=== PATIENT | male | born 1950 | race African-American/Black ===

== ENCOUNTER 2018-12-21 14:52 | Inpatient (IN) ==
[2018-12-21] MEDS ORDERED: ALBUTEROL/IPRATROPIUM 3 ML NEB RESP TX STA (16:58)
[2018-12-21 17:41] LABS: Eosinophils # 0.1 10*3/uL (0.0-0.87); Eosinophils % 2.6 % (0.00-10.9); Hematocrit 21.5 VOL% (42.0-52.0); Immature Granulocytes % 0.8 %; Immature Granulocytes Absolute 0.03 #; Lymphocytes # 0.2 10*3/uL (1.4-4.0); Lymphocytes % 6.2 % (21.2-54.2); Mean Corpuscular HGB Conc 32.6 GM/DL (32-36); Mean Platelet Volume 10.8 FL (9.6-12.0); Monocytes % 1.5 % (1.7-12.7); Neutrophils % 88.9 % (38.7-73.9); Platelet Count 219 T/CUMM (130-400); Red Blood Count 1.92 MC/CUMM (3.8-5.5); Red Cell Distribution Width 17.6 % (9.3-17.3); White Blood Count 3.9 T/CUMM (4-12)
[2018-12-21 18:07] LABS: Albumin 3.6 G/DL (3.4-5.0); Bilirubin,Total 0.6 MG/DL (0.2-1.0); Calcium 8.2 MG/DL (8.5-10.1); Osmolality,Calculated 298.1 MOS/KG (273-304); Total Protein 7.2 G/DL (6.4-8.3)
[2018-12-21] MEDS ORDERED: AZITHROMYCIN INJ 500 MG in SODIUM CHLORIDE 0.9% 250 ML IV STA (18:21)
[2018-12-21] MEDS ORDERED: ALBUTEROL NEB SOLN 5 MG/ML 20 ML/BOTTLE CONT NEB STA (18:21)
[2018-12-21] MEDS ORDERED: methylPREDNISolone SOD SUC 125 MG/2 ML VIAL IV STA (18:21)
[2018-12-21] MEDS ORDERED: GLUCAGON 1 MG VIAL IM PRN ×2 (19:22→19:25)
[2018-12-21] MEDS ORDERED: DEXTROSE 50% 25 GM/50 ML VIAL IV PRN ×2 (19:22→19:25)
[2018-12-21 19:38] LABS: Band Neutrophils 4 % (0-10); Eosinophils 6 % (0-10); Lymphocytes 9 % (20-55); Segmented Neutrophils 79 % (50-85)
[2018-12-21 19:39] LABS: Anisocytosis 2+; Polychromasia Slight
[2018-12-21 19:40] LABS: Hypochromasia 1+; Platelet Estimate Normal; Total Cells Counted 100
[2018-12-21] MEDS ORDERED: ALBUTEROL/IPRATROPIUM 3 ML NEB RESP TX PRN (20:01)
[2018-12-21] MEDS ORDERED: MONTELUKAST 10 MG TABLET PO PRN (20:01)
[2018-12-21] MEDS ORDERED: SODIUM CHLORIDE 0.9% 1,000 ML IV PRN (20:12)
[2018-12-21 22:50] LABS: Basophils % 0.1 % (0.0-0.8); Eosinophils % 0.4 % (0.00-10.9); Hematocrit 20.7 VOL% (42.0-52.0); Hemoglobin 6.6 GM/DL (14.0-18.0); Immature Granulocytes Absolute 0.09 #; Lymphocytes # 0.3 10*3/uL (1.4-4.0); Lymphocytes % 3.3 % (21.2-54.2); Mean Corpuscular HGB Conc 31.9 GM/DL (32-36); Mean Corpuscular Volume 115.6 FL (87-102); Mean Platelet Volume 11.6 FL (9.6-12.0); Monocytes % 1.2 % (1.7-12.7); Platelet Count 242 T/CUMM (130-400); Red Blood Count 1.79 MC/CUMM (3.8-5.5); Red Cell Distribution Width 18.4 % (9.3-17.3); White Blood Count 8.9 T/CUMM (4-12)
[2018-12-21 23:20] LABS: Folate 11.3 NG/ML (5.4-24.0); Vitamin B12 136 PG/ML (211-911)
[2018-12-21 23:22] LABS: Acanthocytes 1+; Anisocytosis 1+; Band Neutrophils 2 % (0-10); Lymphocytes 3 % (20-55); Ovalocytes Few; Platelet Estimate Adequate; Segmented Neutrophils 95 % (50-85); Total Cells Counted 100
[2018-12-21] MEDS: ALBUTEROL/IPRATROPIUM 3 ML NEB RESP TX SCH (23:53)
[2018-12-22] MEDS: cefTRIAXone 1,000 MG in SYRINGE 1 EACH IV SCH ×2 (00:14→21:39)
[2018-12-22] MEDS: INSULIN LISPRO 100 UNIT/ML SUBCUT SCH ×5 (00:20→21:38)
[2018-12-22] MEDS: methylPREDNISolone SOD SUC 40 MG/1 ML VIAL IV SCH ×2 (02:38→10:29)
[2018-12-22] MEDS: ALBUTEROL/IPRATROPIUM 3 ML NEB RESP TX SCH ×6 (03:31→23:39)
[2018-12-22 06:55] LABS: Albumin 3.2 G/DL (3.4-5.0); Bilirubin,Total 0.4 MG/DL (0.2-1.0); Calcium 8.4 MG/DL (8.5-10.1); Osmolality,Calculated 307.7 MOS/KG (273-304); Thyroid Stimulating Hormone 0.625 uIU/ml (0.358-3.74); Total Protein 7.3 G/DL (6.4-8.3)
[2018-12-22 07:58] LABS: Sedimentation Rate-Westergren 123 MM/HR (0-20)
[2018-12-22] MEDS: TAMSULOSIN 0.4 MG CAPSULE PO SCH ×2 (08:35→16:52)
[2018-12-22 09:31] LABS: Hemoglobin A1 (Alkaline) 96.8 % (96.5-98.5); Hemoglobin A2 (Alkaline) 3.2 % (1.5-3.5)
[2018-12-22 10:17] LABS: Hematocrit 26.4 VOL% (42.0-52.0); Immature Granulocytes % 0.9 %; Immature Granulocytes Absolute 0.09 #; Lymphocytes # 0.5 10*3/uL (1.4-4.0); Mean Corpuscular HGB Conc 32.6 GM/DL (32-36); Mean Corpuscular Volume 104.3 FL (87-102); Mean Platelet Volume 11.3 FL (9.6-12.0); Monocytes % 1.6 % (1.7-12.7); Neutrophils % 92.5 % (38.7-73.9); Platelet Count 212 T/CUMM (130-400); Red Blood Count 2.53 MC/CUMM (3.8-5.5); Red Cell Distribution Width 22.3 % (9.3-17.3); White Blood Count 10.2 T/CUMM (4-12)
[2018-12-22 10:18] LABS: Hemoglobin 8.6 GM/DL (14.0-18.0)
[2018-12-22 10:34] LABS: Lymphocytes 6 % (20-55); Segmented Neutrophils 93 % (50-85); Total Cells Counted 100
[2018-12-22 10:35] LABS: Microcytosis 1+
[2018-12-22 10:36] LABS: Anisocytosis 1+; Hypochromasia Slight
[2018-12-22 10:37] LABS: Ovalocytes Slight; Platelet Estimate Normal
[2018-12-22] MEDS: SODIUM CHLORIDE 0.45% 1,000 ML IV SCH (12:15)
[2018-12-22] MEDS: INSULIN GLARGINE 100 UNIT/ML SUBCUT SCH (12:15)
[2018-12-22] MEDS: DEXTROSE 5% NACL 0.45% 1,000 ML IV SCH (12:53)
[2018-12-22] MEDS: AZITHROMYCIN INJ 250 MG in SODIUM CHLORIDE 0.9% 250 ML IV SCH (18:00)
[2018-12-22] MEDS ORDERED: methylPREDNISolone SOD SUC 40 MG/1 ML VIAL IV SCH (21:00)
[2018-12-23] MEDS: SODIUM CHLORIDE 0.45% 1,000 ML IV SCH ×4 (00:50→22:00)
[2018-12-23] MEDS: ALBUTEROL/IPRATROPIUM 3 ML NEB RESP TX SCH ×6 (02:44→23:46)
[2018-12-23 06:00] LABS: Basophils % 0.3 % (0.0-0.8); Eosinophils % 0.3 % (0.00-10.9); Hematocrit 24.8 VOL% (42.0-52.0); Hemoglobin 8.1 GM/DL (14.0-18.0); Immature Granulocytes Absolute 0.11 #; Lymphocytes # 1.6 10*3/uL (1.4-4.0); Lymphocytes % 14.4 % (21.2-54.2); Mean Corpuscular HGB Conc 32.7 GM/DL (32-36); Mean Corpuscular Volume 103.8 FL (87-102); Mean Platelet Volume 11.1 FL (9.6-12.0); Monocytes % 2.9 % (1.7-12.7); NRBC # 0.02 10*3/uL; Neutrophils % 81.1 % (38.7-73.9); Platelet Count 209 T/CUMM (130-400); Red Blood Count 2.39 MC/CUMM (3.8-5.5); Red Cell Distribution Width 22.9 % (9.3-17.3); White Blood Count 11.2 T/CUMM (4-12)
[2018-12-23 06:23] LABS: Calcium 8.3 MG/DL (8.5-10.1); Osmolality,Calculated 297.6 MOS/KG (273-304)
[2018-12-23 06:36] LABS: Lymphocytes 15 % (20-55); Segmented Neutrophils 82 % (50-85); Total Cells Counted 100
[2018-12-23 06:37] LABS: Albumin 3.2 G/DL (3.4-5.0); Anisocytosis 1+; Bilirubin,Total 0.6 MG/DL (0.2-1.0); Calcium 8.5 MG/DL (8.5-10.1); Hypochromasia 1+; Macrocytosis Slight; Microcytosis 1+; Osmolality,Calculated 295.7 MOS/KG (273-304); Platelet Estimate Adequate; Total Protein 6.8 G/DL (6.4-8.3)
[2018-12-23] MEDS: predniSONE 20 MG TABLET PO SCH (09:56)
[2018-12-23] MEDS: TAMSULOSIN 0.4 MG CAPSULE PO SCH ×2 (09:56→17:24)
[2018-12-23] MEDS: INSULIN LISPRO 100 UNIT/ML SUBCUT SCH ×4 (09:56→21:57)
[2018-12-23] MEDS: INSULIN GLARGINE 100 UNIT/ML SUBCUT SCH (09:56)
[2018-12-23 11:45] LABS: Hematocrit 26.1 VOL% (42.0-52.0); Hemoglobin 8.6 GM/DL (14.0-18.0)
[2018-12-23] MEDS: AZITHROMYCIN INJ 250 MG in SODIUM CHLORIDE 0.9% 250 ML IV SCH (17:50)
[2018-12-23] MEDS: cefTRIAXone 1,000 MG in SYRINGE 1 EACH IV SCH (21:57)
[2018-12-24] MEDS: ALBUTEROL/IPRATROPIUM 3 ML NEB RESP TX SCH ×5 (03:37→19:12)
[2018-12-24] MEDS: SODIUM CHLORIDE 0.45% 1,000 ML IV SCH ×3 (05:24→15:04)
[2018-12-24 06:21] LABS: Hematocrit 23.1 VOL% (42.0-52.0); Hemoglobin 7.7 GM/DL (14.0-18.0)
[2018-12-24] MEDS: INSULIN LISPRO 100 UNIT/ML SUBCUT SCH ×4 (07:47→21:48)
[2018-12-24] MEDS: TAMSULOSIN 0.4 MG CAPSULE PO SCH ×2 (10:49→18:16)
[2018-12-24] MEDS: INSULIN GLARGINE 100 UNIT/ML SUBCUT SCH (10:49)
[2018-12-24] MEDS: predniSONE 20 MG TABLET PO SCH (10:49)
[2018-12-24 13:59] LABS: Apearance,Urine Slightly Hazy (Clear); Bacteria,Urine Occasional /HPF (Few); Bilirubin,Urine Negative (Negative); Blood, Urine Large mg/dL (Negative); Glucose,Urine (UA) Negative (Negative); Ketones,Urine Negative (Negative); Mucus,Urine Occasional /LPF (Occasional); Nitrite,Urine Negative (Negative); Protein,Urine Negative; RBC,Urine 43 /HPF (0-4); Squamous Epithelial Cell,Urine Occasional /HPF (0-10); Urine Color Yellow (Yellow); Urine Specific Gravity 1.009 (1.001-1.035); Urine Urobilinogen < 2.0 EU/DL (0.2-1.0); WBC,Urine 7 /HPF (0-6)
[2018-12-24 18:15] LABS: Hematocrit 26.7 VOL% (42.0-52.0); Hemoglobin 8.8 GM/DL (14.0-18.0)
[2018-12-24] MEDS: AZITHROMYCIN INJ 250 MG in SODIUM CHLORIDE 0.9% 250 ML IV SCH (18:17)
[2018-12-24] MEDS: cefTRIAXone 1,000 MG in SYRINGE 1 EACH IV SCH (21:29)
[2018-12-25] MEDS: ALBUTEROL/IPRATROPIUM 3 ML NEB RESP TX SCH ×6 (00:17→19:52)
[2018-12-25 06:39] LABS: Hemoglobin 8.2 GM/DL (14.0-18.0)
[2018-12-25] MEDS: INSULIN LISPRO 100 UNIT/ML SUBCUT SCH ×4 (08:00→21:07)
[2018-12-25] MEDS: TAMSULOSIN 0.4 MG CAPSULE PO SCH ×2 (09:56→17:43)
[2018-12-25] MEDS: predniSONE 20 MG TABLET PO SCH (09:56)
[2018-12-25] MEDS: INSULIN GLARGINE 100 UNIT/ML SUBCUT SCH (09:57)
[2018-12-25] MEDS: SODIUM CHLORIDE 0.45% 1,000 ML IV SCH ×3 (10:03→22:53)
[2018-12-25] MEDS: AZITHROMYCIN INJ 250 MG in SODIUM CHLORIDE 0.9% 250 ML IV SCH (19:15)
[2018-12-25] MEDS: cefTRIAXone 1,000 MG in SYRINGE 1 EACH IV SCH (21:07)
[2018-12-26] MEDS: ALBUTEROL/IPRATROPIUM 3 ML NEB RESP TX SCH ×6 (00:02→19:22)
[2018-12-26] MEDS ORDERED: LIDOCAINE 2% TOP JELLY 20 ML VIAL INTRAURETH ONE (06:44)
[2018-12-26] MEDS: TAMSULOSIN 0.4 MG CAPSULE PO SCH ×2 (07:02→18:33)
[2018-12-26] MEDS: INSULIN GLARGINE 100 UNIT/ML SUBCUT SCH (10:02)
[2018-12-26] MEDS: predniSONE 20 MG TABLET PO SCH (10:02)
[2018-12-26] MEDS: INSULIN LISPRO 100 UNIT/ML SUBCUT SCH ×4 (10:07→21:22)
[2018-12-26] MEDS ORDERED: INSULIN GLARGINE 100 UNIT/ML SUBCUT SCH (11:10)
[2018-12-26 11:41] LABS: Hematocrit 24.4 VOL% (42.0-52.0)
[2018-12-26] MEDS: CYANOCOBALAMIN 1000 MCG/1 ML VIAL IM SCH (13:31)
[2018-12-26] MEDS: SODIUM CHLORIDE 0.45% 1,000 ML IV SCH (13:36)
[2018-12-26] MEDS: AZITHROMYCIN INJ 250 MG in SODIUM CHLORIDE 0.9% 250 ML IV SCH (18:33)
[2018-12-26] MEDS ORDERED: DUTASTERIDE 0.5 MG CAPSULE PO SCH (21:00)
[2018-12-26] MEDS: cefTRIAXone 1,000 MG in SYRINGE 1 EACH IV SCH (21:22)
[2018-12-27] MEDS: ALBUTEROL/IPRATROPIUM 3 ML NEB RESP TX SCH ×4 (00:11→11:31)
[2018-12-27] MEDS: SODIUM CHLORIDE 0.45% 1,000 ML IV SCH ×2 (02:45→03:27)
[2018-12-27 05:36] LABS: Hematocrit 25.3 VOL% (42.0-52.0); Hemoglobin 8.5 GM/DL (14.0-18.0)
[2018-12-27 06:17] LABS: Calcium 8.7 MG/DL (8.5-10.1)
[2018-12-27] MEDS: INSULIN LISPRO 100 UNIT/ML SUBCUT SCH (07:53)
[2018-12-27 08:02] VITALS: BP 156/89
[2018-12-27] MEDS: CYANOCOBALAMIN 1000 MCG/1 ML VIAL IM SCH (09:59)
[2018-12-27] MEDS: predniSONE 20 MG TABLET PO SCH (09:59)
[2018-12-27] MEDS: TAMSULOSIN 0.4 MG CAPSULE PO SCH (09:59)
== END 2018-12-27 11:52 | disposition home or self-care (01) | DRG 202 ==
LOC: N.ED 14:52 → N.EDINP 19:22 → SUATTDRO 19:22 → N.5E 19:46
PROVIDERS: ADMIT Internal Medicine Nephrology; ATTEND Internal Medicine

== ENCOUNTER 2020-03-03 10:30 | Inpatient (IN) ==
[2020-03-03 12:28] LABS: Apearance,Urine CLEAR (Clear); Bacteria,Urine Occasional /HPF (Few); Bilirubin,Urine Negative (Negative); Blood, Urine Negative (Negative); Glucose,Urine (UA) Negative (Negative); Ketones,Urine Negative (Negative); Mucus,Urine Occasional /LPF (Occasional); Nitrite,Urine Positive (Negative); Protein,Urine Negative; RBC,Urine 1 /HPF (0-4); Urine Specific Gravity 1.006 (1.001-1.035); WBC,Urine 3 /HPF (0-6)
[2020-03-03 12:30] LABS: Urine Color Yellow (Yellow)
[2020-03-03 12:30] LABS: Basophils # 0.1 10*3/uL (0.0-0.2); Basophils % 0.3 % (0.0-0.8); Eosinophils # 0.1 10*3/uL (0.0-0.87); Eosinophils % 0.9 % (0.00-10.9); Hematocrit 39.2 VOL% (42.0-52.0); Immature Granulocytes % 0.7 %; Lymphocytes # 1.4 10*3/uL (1.4-4.0); Lymphocytes % 9.4 % (21.2-54.2); Mean Corpuscular HGB Conc 30.6 GM/DL (32-36); Mean Corpuscular Volume 93.8 FL (87-102); Mean Platelet Volume 11.3 FL (9.6-12.0); Monocytes % 9.5 % (1.7-12.7); Neutrophils % 79.2 % (38.7-73.9); Platelet Count 438 T/CUMM (130-400); Red Blood Count 4.18 MC/CUMM (3.8-5.5); Red Cell Distribution Width 14.1 % (9.3-17.3); White Blood Count 14.7 T/CUMM (4-12)
[2020-03-03 12:42] LABS: Albumin 3.6 G/DL (3.4-5.0); Bilirubin,Total 0.6 MG/DL (0.2-1.0); Calcium 9.9 MG/DL (8.5-10.1); Osmolality,Calculated 302.1 MOS/KG (273-304)
[2020-03-03] MEDS ORDERED: SODIUM CHLORIDE 0.9% 1,000 ML IV STA (13:03)
[2020-03-03] MEDS ORDERED: LEVOFLOXACIN 500 MG TABLET PO STA (14:19)
[2020-03-03] MEDS ORDERED: LIDOCAINE 2% TOP JELLY 20 ML VIAL INTRAURETH ONE (17:38)
[2020-03-03] MEDS ORDERED: HYDROmorphone 2 MG/1 ML VIAL IV STA (18:24)
[2020-03-03] MEDS ORDERED: ONDANSETRON 4 MG/2 ML VIAL IV STA (18:25)
[2020-03-03] MEDS ORDERED: GLUCAGON 1 MG VIAL IM PRN (20:04)
[2020-03-03] MEDS ORDERED: BELLADONNA/OPIUM 30 MG SUPP RECTAL PRN (20:04)
[2020-03-03] MEDS ORDERED: DEXTROSE 50% 25 GM/50 ML VIAL IV PRN (20:04)
[2020-03-03] MEDS ORDERED: ACETAMINOPHEN 325 MG TABLET PO PRN (20:04)
[2020-03-03] MEDS ORDERED: PROMETHAZINE 25 MG/1 ML VIAL IM PRN (20:04)
[2020-03-03] MEDS ORDERED: ONDANSETRON 4 MG/2 ML VIAL IV PRN (20:04)
[2020-03-03 20:31] LABS: Basophils % 0.2 % (0.0-0.8); Eosinophils % 0.2 % (0.00-10.9); Hematocrit 36.7 VOL% (42.0-52.0); Hemoglobin 11.2 GM/DL (14.0-18.0); Immature Granulocytes % 0.8 %; Immature Granulocytes Absolute 0.14 #; Lymphocytes # 0.7 10*3/uL (1.4-4.0); Lymphocytes % 3.8 % (21.2-54.2); Mean Corpuscular HGB Conc 30.5 GM/DL (32-36); Mean Corpuscular Volume 96.8 FL (87-102); Mean Platelet Volume 10.4 FL (9.6-12.0); Monocytes % 7.9 % (1.7-12.7); Neutrophils % 87.1 % (38.7-73.9); Platelet Count 398 T/CUMM (130-400); Red Blood Count 3.79 MC/CUMM (3.8-5.5); Red Cell Distribution Width 13.9 % (9.3-17.3); White Blood Count 17.5 T/CUMM (4-12)
[2020-03-03 20:52] LABS: Lymphocytes 4 % (20-55); Platelet Estimate Adequate; Segmented Neutrophils 91 % (50-85); Total Cells Counted 100
[2020-03-03 20:59] LABS: Calcium 9.2 MG/DL (8.5-10.1); Osmolality,Calculated 305.8 MOS/KG (273-304)
[2020-03-03] MEDS: INSULIN LISPRO 100 UNIT/ML SUBCUT SCH (22:52)
[2020-03-03] MEDS: SODIUM CHLORIDE 0.45% 1,000 ML IV SCH (22:53)
[2020-03-04] MEDS: SODIUM CHLORIDE 0.45% 1,000 ML IV SCH ×3 (05:34→16:45)
[2020-03-04 05:44] LABS: Basophils % 0.3 % (0.0-0.8); Eosinophils # 0.1 10*3/uL (0.0-0.87); Eosinophils % 1.1 % (0.00-10.9); Hematocrit 38.8 VOL% (42.0-52.0); Hemoglobin 11.9 GM/DL (14.0-18.0); Immature Granulocytes % 0.7 %; Immature Granulocytes Absolute 0.09 #; Lymphocytes # 0.9 10*3/uL (1.4-4.0); Lymphocytes % 7.2 % (21.2-54.2); Mean Corpuscular HGB Conc 30.7 GM/DL (32-36); Mean Corpuscular Volume 95.6 FL (87-102); Mean Platelet Volume 10.8 FL (9.6-12.0); Monocytes % 9.8 % (1.7-12.7); Neutrophils % 80.9 % (38.7-73.9); Platelet Count 367 T/CUMM (130-400); Red Blood Count 4.06 MC/CUMM (3.8-5.5); Red Cell Distribution Width 14.1 % (9.3-17.3); White Blood Count 13.1 T/CUMM (4-12)
[2020-03-04 06:02] LABS: Calcium 9.3 MG/DL (8.5-10.1); Osmolality,Calculated 302.7 MOS/KG (273-304)
[2020-03-04] MEDS: INSULIN LISPRO 100 UNIT/ML SUBCUT SCH ×4 (07:32→20:32)
[2020-03-04] MEDS: INSULIN GLARGINE 100 UNIT/ML SUBCUT SCH (10:49)
[2020-03-04] MEDS: DORZOLAMIDE 2% OPH SOLN 10 ML BOTTLE BOTH EYES SCH ×2 (10:49→20:24)
[2020-03-04] MEDS: TAMSULOSIN 0.4 MG CAPSULE PO SCH (10:50)
[2020-03-04] MEDS: amLODIPine 5 MG TABLET PO SCH (15:39)
[2020-03-04] MEDS: ENOXAPARIN 30 MG/0.3 ML SYRINGE SUBCUT SCH (15:39)
[2020-03-04] MEDS: DUTASTERIDE 0.5 MG CAPSULE PO SCH (20:24)
[2020-03-04] MEDS: SIMVASTATIN 10 MG TABLET PO SCH (20:24)
[2020-03-05] MEDS: SODIUM CHLORIDE 0.45% 1,000 ML IV SCH (01:38)
[2020-03-05 05:28] LABS: Basophils # 0.1 10*3/uL (0.0-0.2); Basophils % 0.4 % (0.0-0.8); Eosinophils # 0.6 10*3/uL (0.0-0.87); Eosinophils % 5.1 % (0.00-10.9); Hematocrit 35.5 VOL% (42.0-52.0); Hemoglobin 10.8 GM/DL (14.0-18.0); Immature Granulocytes % 1.1 %; Immature Granulocytes Absolute 0.13 #; Lymphocytes # 2.2 10*3/uL (1.4-4.0); Lymphocytes % 17.9 % (21.2-54.2); Mean Corpuscular HGB Conc 30.4 GM/DL (32-36); Mean Corpuscular Volume 95.4 FL (87-102); Mean Platelet Volume 10.6 FL (9.6-12.0); Monocytes % 12.1 % (1.7-12.7); Neutrophils % 63.4 % (38.7-73.9); Platelet Count 385 T/CUMM (130-400); Red Blood Count 3.72 MC/CUMM (3.8-5.5); Red Cell Distribution Width 13.6 % (9.3-17.3)
[2020-03-05 05:48] LABS: Calcium 8.6 MG/DL (8.5-10.1); Osmolality,Calculated 287.3 MOS/KG (273-304)
[2020-03-05 05:50] LABS: Calcium 8.5 MG/DL (8.5-10.1)
[2020-03-05] MEDS: INSULIN LISPRO 100 UNIT/ML SUBCUT SCH ×4 (08:53→20:36)
[2020-03-05] MEDS: TAMSULOSIN 0.4 MG CAPSULE PO SCH (08:55)
[2020-03-05] MEDS: amLODIPine 5 MG TABLET PO SCH (08:55)
[2020-03-05] MEDS: INSULIN GLARGINE 100 UNIT/ML SUBCUT SCH (08:55)
[2020-03-05] MEDS: DORZOLAMIDE 2% OPH SOLN 10 ML BOTTLE BOTH EYES SCH ×2 (08:58→20:36)
[2020-03-05] MEDS ORDERED: LEVOFLOXACIN INJ 250 MG in PREMIX 1 EACH IV SCH (09:00)
[2020-03-05] MEDS: ENOXAPARIN 30 MG/0.3 ML SYRINGE SUBCUT SCH (12:43)
[2020-03-05] MEDS ORDERED: MAGNESIUM SULF RIDER 4 GM in PREMIX 1 EACH IV ONE (15:54)
[2020-03-05] MEDS ORDERED: MAGNESIUM SULF RIDER 2 GM in PREMIX 1 EACH IV ONE (15:54)
[2020-03-05] MEDS ORDERED: MAGNESIUM SULF RIDER 2 GM in PREMIX 1 EACH IV PRN ×2 (16:03→16:05)
[2020-03-05] MEDS ORDERED: MAGNESIUM SULF RIDER 4 GM in PREMIX 1 EACH IV PRN ×2 (16:04→16:05)
[2020-03-05] MEDS: DUTASTERIDE 0.5 MG CAPSULE PO SCH (20:36)
[2020-03-05] MEDS: SIMVASTATIN 10 MG TABLET PO SCH (20:36)
[2020-03-06 06:27] LABS: Calcium 8.7 MG/DL (8.5-10.1); Osmolality,Calculated 284.3 MOS/KG (273-304)
[2020-03-06] MEDS: INSULIN LISPRO 100 UNIT/ML SUBCUT SCH ×4 (09:14→21:25)
[2020-03-06] MEDS: DORZOLAMIDE 2% OPH SOLN 10 ML BOTTLE BOTH EYES SCH ×2 (09:25→21:22)
[2020-03-06] MEDS: TAMSULOSIN 0.4 MG CAPSULE PO SCH (09:25)
[2020-03-06] MEDS: amLODIPine 5 MG TABLET PO SCH (09:25)
[2020-03-06] MEDS: INSULIN GLARGINE 100 UNIT/ML SUBCUT SCH (09:25)
[2020-03-06] MEDS: DUTASTERIDE 0.5 MG CAPSULE PO SCH (21:22)
[2020-03-06] MEDS: SIMVASTATIN 10 MG TABLET PO SCH (21:22)
[2020-03-07 06:28] LABS: Calcium 8.9 MG/DL (8.5-10.1); Osmolality,Calculated 289.1 MOS/KG (273-304)
[2020-03-07] MEDS ORDERED: LIDOCAINE 2% TOP JELLY 20 ML VIAL INTRAURETH ONE (08:32)
[2020-03-07] MEDS: INSULIN LISPRO 100 UNIT/ML SUBCUT SCH (08:36)
[2020-03-07 09:34] VITALS: BP 117/73
[2020-03-07] MEDS: DORZOLAMIDE 2% OPH SOLN 10 ML BOTTLE BOTH EYES SCH (10:05)
[2020-03-07] MEDS: TAMSULOSIN 0.4 MG CAPSULE PO SCH (10:05)
[2020-03-07] MEDS: amLODIPine 5 MG TABLET PO SCH (10:05)
[2020-03-07] MEDS: INSULIN GLARGINE 100 UNIT/ML SUBCUT SCH (10:16)
== END 2020-03-07 10:35 | disposition home or self-care (01) | DRG 726 ==
LOC: N.ED 10:30 → N.EDINP 16:10 → N.4E 18:51
PROVIDERS: ADMIT Urology; ATTEND Urology

== ENCOUNTER 2022-08-03 09:28 | Observation (INO) ==
[2022-08-03] MEDS ORDERED: ALBUTEROL/IPRATROPIUM 3 ML NEB RESP TX STA (10:16)
[2022-08-03] MEDS ORDERED: methylPREDNISolone SOD SUC 125 MG/2 ML VIAL IV STA (10:16)
[2022-08-03 10:49] LABS: Basophils # 0.1 10*3/uL (0.0-0.2); Basophils % 0.6 % (0.0-0.8); Eosinophils # 1.2 10*3/uL (0.0-0.87); Eosinophils % 14.9 % (0.00-10.9); Hematocrit 41.2 VOL% (42.0-52.0); Hemoglobin 13.4 GM/DL (14.0-18.0); Immature Granulocytes % 0.3 %; Immature Granulocytes Absolute 0.02 #; Lymphocytes # 1.4 10*3/uL (1.4-4.0); Lymphocytes % 17.7 % (21.2-54.2); Mean Corpuscular HGB Conc 32.5 GM/DL (32-36); Mean Corpuscular Volume 104.6 FL (87-102); Mean Platelet Volume 10.6 FL (9.6-12.0); Monocytes # 0.6 10*3/uL (0.11-0.8); Monocytes % 8.2 % (1.7-12.7); Neutrophils % 58.3 % (38.7-73.9); Platelet Count 282 T/CUMM (130-400); Red Blood Count 3.94 MC/CUMM (3.8-5.5); Red Cell Distribution Width 13.6 % (9.3-17.3); White Blood Count 7.8 T/CUMM (4-12)
[2022-08-03 11:17] LABS: Bilirubin,Total 0.4 MG/DL (0.20-1.00); Osmolality,Calculated 286.4 MOS/KG (273-304); Potassium 4.1 MMOL/L (3.5-5.1); Total Protein 8.2 G/DL (6.4-8.2)
[2022-08-03 11:38] LABS: Eosinophils 24 % (0-10); Lymphocytes 17 % (20-55); Total Cells Counted 100
[2022-08-03 11:40] LABS: Platelet Estimate Normal
[2022-08-03 11:41] LABS: Anisocytosis Slight; Giant Platelets Few; Macrocytosis Slight
[2022-08-03] MEDS ORDERED: predniSONE 20 MG TABLET PO STA (11:54)
[2022-08-03] MEDS ORDERED: GLUCAGON 1 MG VIAL IM PRN (13:31)
[2022-08-03] MEDS ORDERED: ONDANSETRON 4 MG/2 ML VIAL IV PRN (13:31)
[2022-08-03] MEDS ORDERED: hydrALAZINE 20 MG/1 ML VIAL IV PRN (13:31)
[2022-08-03] MEDS ORDERED: LACTULOSE 20 GM/30 ML UDCUP PO PRN (13:31)
[2022-08-03] MEDS ORDERED: ACETAMINOPHEN 325 MG TABLET PO PRN (13:31)
[2022-08-03] MEDS ORDERED: DEXTROSE 10% 250 ML BAG IV PRN (13:31)
[2022-08-03] MEDS ORDERED: MAGNESIUM SULF RIDER 2 GM/50 ML PREMIX IV ONE (13:35)
[2022-08-03] MEDS ORDERED: ENOXAPARIN 40 MG/0.4 ML SYRINGE SUBCUT SCH (14:00)
[2022-08-03] MEDS: guaiFENesin/DM ER 600-30 MG TABLET PO SCH ×2 (14:01→21:37)
[2022-08-03] MEDS: PANTOPRAZOLE 40 MG TABLET PO SCH (14:01)
[2022-08-03] MEDS: ALBUTEROL 2.5 MG/3 ML NEB RESP TX SCH ×2 (14:18→19:33)
[2022-08-03] MEDS: MONTELUKAST 10 MG TABLET PO SCH ×2 (14:32→21:37)
[2022-08-03] MEDS: INSULIN REGULAR 100 UNIT/ML SUBCUT SCH ×2 (16:58→21:38)
[2022-08-03] MEDS ORDERED: TRAVOPROST 0.004% OPH SOLN 2.5 ML BOTTLE BOTH EYES SCH (21:00)
[2022-08-03] MEDS: OSELTAMIVIR 30 MG CAPSULE PO SCH (21:37)
[2022-08-03] MEDS: methylPREDNISolone SOD SUC 40 MG/1 ML VIAL IV SCH (21:38)
[2022-08-03] MEDS: DORZOLAMIDE 2% OPH SOLN 10 ML BOTTLE BOTH EYES SCH (21:38)
[2022-08-03] MEDS: BUDESONIDE/FORMOTEROL 160-4.5 INHALER 6 GM INH SCH (21:39)
[2022-08-04] MEDS: ALBUTEROL 2.5 MG/3 ML NEB RESP TX SCH ×4 (00:54→10:30)
[2022-08-04 05:22] LABS: Basophils % 0.2 % (0.0-0.8); Eosinophils # 0.1 10*3/uL (0.0-0.87); Eosinophils % 0.5 % (0.00-10.9); Hematocrit 40.5 VOL% (42.0-52.0); Hemoglobin 13.4 GM/DL (14.0-18.0); Immature Granulocytes % 0.6 %; Immature Granulocytes Absolute 0.11 #; Lymphocytes # 1.1 10*3/uL (1.4-4.0); Lymphocytes % 6.3 % (21.2-54.2); Mean Corpuscular HGB Conc 33.1 GM/DL (32-36); Mean Corpuscular Volume 103.8 FL (87-102); Mean Platelet Volume 11.1 FL (9.6-12.0); Monocytes # 0.7 10*3/uL (0.11-0.8); Monocytes % 3.9 % (1.7-12.7); Neutrophils % 88.5 % (38.7-73.9); Platelet Count 332 T/CUMM (130-400); Red Cell Distribution Width 13.7 % (9.3-17.3); White Blood Count 17.9 T/CUMM (4-12)
[2022-08-04 05:51] LABS: Calcium 9.8 MG/DL (8.5-10.1); Osmolality,Calculated 286.8 MOS/KG (273-304); Potassium 4.4 MMOL/L (3.5-5.1); Thyroid Stimulating Hormone 0.778 uIU/ml (0.358-3.74)
[2022-08-04] MEDS: INSULIN REGULAR 100 UNIT/ML SUBCUT SCH (08:38)
[2022-08-04] MEDS: methylPREDNISolone SOD SUC 40 MG/1 ML VIAL IV SCH (08:39)
[2022-08-04] MEDS: guaiFENesin/DM ER 600-30 MG TABLET PO SCH (08:39)
[2022-08-04] MEDS: OSELTAMIVIR 30 MG CAPSULE PO SCH (08:39)
[2022-08-04] MEDS: PANTOPRAZOLE 40 MG TABLET PO SCH (08:39)
[2022-08-04] MEDS: MONTELUKAST 10 MG TABLET PO SCH (08:39)
[2022-08-04] MEDS: BUDESONIDE/FORMOTEROL 160-4.5 INHALER 6 GM INH SCH (08:49)
[2022-08-04] MEDS: DORZOLAMIDE 2% OPH SOLN 10 ML BOTTLE BOTH EYES SCH (08:49)
[2022-08-04 08:59] VITALS: BP 127/68
[2022-08-04] MEDS ORDERED: ASPIRIN EC 81 MG TABLET PO SCH (09:00)
== END 2022-08-04 11:39 | disposition home or self-care (01) ==
LOC: N.EDINP 09:28 → N.ED 09:28 → SUATTDRO 13:29 → N.2E 15:30
PROVIDERS: ADMIT Hospitalist; ATTEND Internal Medicine